=== PATIENT | male | born 1950 | race Caucasian/White ===

== ENCOUNTER → 2019-06-24 | Outpatient (CLI) | payer MEDICARE, OTHER ==
[~2019-06-24] MED LIST: ALLOPURINOL300 MG PO; CRESTOR10 MG PO; GUIATUSS AC SY120 ML PO; LASIX40 MG PO; TESSALON PERLE100 MG PO; ZEBETA10 MG PO; ZIAC 10-6.25 M1 EACH PO; duoneb INH
--- NOTE | 2019-06-24 13:15 | Diagnostic Imaging Report ---
EXAMINATION: CHEST 2 VIEWS INDICATION: Shortness of breath, COPD, pneumonia COMPARISON: Multiple prior chest radiograph dating back to 06/25/2015 FINDINGS: LINES/TUBES:None LUNGS:The lungs are moderately inflated. Again seen and not significantly changed dating back to radiographs of 06/25/2015 are bilateral patchy airspace and interstitial opacities and bronchiectasis. PLEURA:No pleural effusion or pneumothorax. MEDIASTINUM:The cardiomediastinal silhouette appears unchanged in size and shape. BONES/SOFT TISSUES:No acute osseous injury. ABDOMEN:No free air under the diaphragm. IMPRESSION: Bilateral lower lung predominant patchy airspace and interstitial opacities and bronchiectasis, relatively stable dating back to radiograph from 06/25/2015, most likely represent chronic interstitial lung disease rather than acute multifocal pneumonia. Signed by: Shannan Taylor MD on 06/24/2019 1:12 PM
== END ==
LOC: RAD 12:06
PROVIDERS: ATTEND Internal Medicine
DX: I27.0 Primary pulmonary hypertension (principal); J15.9 Unspecified bacterial pneumonia; J44.9 Chronic obstructive pulmonary disease, unspecified
CPT/HCPCS: 71046